=== PATIENT | male | born 1985 | race Caucasian/White ===

== ENCOUNTER 2019-07-25 17:07 | Emergency (ER) | payer OTHER ==
[2019-07-25] MEDS ORDERED: ACETAMINOPHEN 500 MG TABLET (FP) PO ONE (17:40)
[2019-07-25] MEDS ORDERED: ONDANSETRON *ODT* 4 MG TABLET SL ONE (17:40)
--- NOTE | 2019-07-25 17:40 | PDOC ---
Rapid Medical Evaluation Chief Complaint: Cold Symptoms Time Seen by Provider: 07/25/19 17:38 Medical Evaluation: Allergies Allergy/AdvReac Type Severity Reaction Status Date / Time No Known Allergies Allergy Verified 07/25/19 17:37 07/25/19 17:38 I have performed a brief in-person evaluation of this patient. The patient presents with a chief complaint of: presenting with complains of malaise, fever, chills, nausea and vomiting since this AM. report unable to keep food down Pertinent physical exam findings: fever of 101 I have ordered the following:zofran, rapid flu, Tylenol The patient will proceed to the ED for further evaluation. Discharge Disposition - Diagnosis Fever Qualifiers: Fever type: unspecified Qualified Code(s): R50.9 - Fever, unspecified - Discharge Dispostion Condition at time of disposition: Stable - Referrals - Patient Instructions - Post Discharge Activity
[2019-07-25 17:41] VITALS: BP 121/71; PULSE 16; TEMP 101.3; BMI 28.1
[2019-07-25] MEDS ORDERED: ONDANSETRON *ODT* 4 MG TABLET ONE (18:41)
[2019-07-25] MEDS ORDERED: ACETAMINOPHEN 500 MG TABLET (FP) ONE (18:41)
--- NOTE | 2019-07-25 19:32 | PDOC ---
History of Present Illness - General Chief Complaint: Cold Symptoms Stated Complaint: COLD SYMPTOMS/DIARRHEA Time Seen by Provider: 07/25/19 17:38 History Source: Patient Exam Limitations: No Limitations - History of Present Illness Initial Comments: 07/25/19 19:28 33-year-old male denies past medical history presents complaining of fever, nausea, body aches, one episode of vomiting and one episode of diarrhea today. Patient returned from 6-day trip to [place] 2 days ago. Patient did not take any medications today. Reports daughter at home diagnosed with ear and throat infection yesterday. Denies cough, headache, neck pain, chest pain, shortness of breath, abdominal pain, rash, urinary complaints or any other symptoms. ROS: GENERAL/CONSTITUTIONAL: Positive fever, weakness, no chills or dizziness HEAD, EYES, EARS, NOSE AND THROAT: No changes in vision, No ear pain or discharge, No sore throat CARDIOVASCULAR: No chest pain RESPIRATORY: No shortness of breath or cough GASTROINTESTINAL: Positive nausea, vomiting, diarrhea, no abdominal pain GENITOURINARY: No dysuria MUSCULOSKELETAL: No neck or back pain SKIN: No rash NEUROLOGIC: No headache, vertigo, loss of consciousness, or loss of sensation PE: GENERAL: well-appearing, NAD HEAD: NCAT EYES: Pupils equal, round and reactive to light, sclera anicteric, conjunctiva clear ENT: Normal bilateral ear canals, normal TM's, pharynx: no erythema, no exudate , uvula midline NECK: supple, no lymphadenopathy CHEST: nontender RESP: clear, no w/r/r CARDIO: rrr, no m/g/r ABD: +BS, soft, nontender, non distended BACK: no midline spinal ttp, no CVAT EXTREMITIES: Normal range of motion, no edema NEUROLOGICAL: Normal speech, normal gait SKIN: Warm, Dry Is this a multiple visit Asthma Patient?: No Past History - Past Medical History Allergies/Adverse Reactions: Allergies Allergy/AdvReac Type Severity Reaction Status Date / Time No Known Allergies Allergy Verified 07/25/19 17:37 - Psycho Social/Smoking Cessation Hx Smoking History: Never smoked Hx Alcohol Use: No Drug/Substance Use Hx: No *Physical Exam - Vital Signs Last Vital Signs Temp Pulse Resp BP Pulse Ox 101.3 F H 16 L 121 H 121/71 99 07/25/19 17:37 07/25/19 17:37 07/25/19 17:37 07/25/19 17:37 07/25/19 17:37 ED Treatment Course - Medications Given in the ED: ED Medications Discontinued Medications Generic Name Dose Route Start Last Admin Trade Name Kimberly PRN Reason Stop Dose Admin Acetaminophen 1,000 mg 07/25/19 17:40 07/25/19 18:43 Tylenol - PO 07/25/19 17:41 1,000 mg ONCE ONE Administration Ondansetron HCl 4 mg 07/25/19 17:40 07/25/19 18:43 Zofran Odt - SL 07/25/19 17:41 4 mg ONCE ONE Administration Medical Decision Making - Medical Decision Making 07/25/19 19:31 33-year-old male with body aches, nausea, one episode of vomiting and diarrhea, fever x1 day. Return 2 days ago from 6-day trip to [place]. Young daughter diagnosed yesterday with ear and throat infection. with similar symptoms. Symptoms likely due to viral illness Tolerating p.o. fluids P.o. acetaminophen given Supportive care instructions provided Strict return precautions given 07/25/19 19:41 Repeat temp 99.8 Note for work provided Stable for discharge Discharge - Discharge Information Problems reviewed: Yes Clinical Impression/Diagnosis: Fever Qualifiers: Fever type: unspecified Qualified Code(s): R50.9 - Fever, unspecified Condition: Stable Disposition: HOME - Admission No - Follow up/Referral Referrals: Jass Fischer [Primary Care Provider] - - Patient Discharge Instructions Additional Instructions: Rest, remain hydrated Alternate between acetaminophen 975 mg every 6 hours and ibuprofen 600 mg every 6 hours as needed for fever Follow-up with your doctor within 1 week If symptoms worsen return to ED - Post Discharge Activity Work/Back to School Note: Back to Work
== END 2019-07-25 19:44 | disposition home or self-care (01) ==
LOC: JERFT 17:07
DX: R50.9 Fever, unspecified (principal)
CPT/HCPCS: 87804; 99281-25; Q0162

== ENCOUNTER 2022-01-28 18:33 | Inpatient (IN) | payer OTHER ==
[2022-01-28 18:39] VITALS: BMI 28.7
[2022-01-28] MEDS ORDERED: KETOROLAC TROMETHAMINE 30 MG/1 ML VIAL IVPUSH ONE (20:58)
[2022-01-28] MEDS ORDERED: KETOROLAC TROMETHAMINE 30 MG/1 ML VIAL ONE (21:22)
[2022-01-28 21:54] LABS: BASO % 0.4 % (0-2.0); EOS % 1.4 % (0-4.5); HEMATOCRIT 44.3 % (35.4-49); HEMOGLOBIN 15.3 GM/dL (11.7-16.9); LYMPH % 11.8 % (8-40); MCH 30.2 pg (25.7-33.7); MCHC 34.5 g/dl (32.0-35.9); MEAN CELL VOLUME 87.7 fl (80-96); MONO % 6.7 % (3.8-10.2); NEUT % 79.7 % (42.8-82.8); PLATELET COUNT 204 10^3/uL (134-434); RBC 5.05 M/mm3 (4.00-5.60); RDW 14.6 % (11.9-15.9); WHITE BLOOD COUNT 12.7 K/mm3 (4.0-10.0)
[2022-01-28 22:34] LABS: EPI CELLS 2 /uL (0-25.1); HYALINE CASTS 1 /uL (0-3.1); PH,URINE 5.5 (5.0-8.0); URINE APPEARANCE CLEAR; URINE BACTERIA 0 /uL (0-1359); URINE BILIRUBIN NEGATIVE (NEGATIVE); URINE COLOR YELLOW; URINE GLUCOSE (UA) NEGATIVE (NEGATIVE); URINE KETONE TRACE (NEGATIVE); URINE LEUK ESTERASE NEGATIVE (NEGATIVE); URINE NITRITE NEGATIVE (NEGATIVE); URINE PROTEIN NEGATIVE (NEGATIVE); URINE RBC 2 /uL (0-23.9); URINE UROBILINOGEN 0.2 mg/dL (0.2-1.0); URINE WBC 5 /uL (0-25.8)
[2022-01-28 23:07] LABS: INR 1.07 (0.83-1.09); PROTHROMBIN TIME (PATIENT) 12.3 SEC (9.7-13.0)
[2022-01-28 23:21] LABS: CALCIUM 9.3 mg/dL (8.5-10.1)
[2022-01-28 23:22] LABS: BLOOD UREA NITROGEN 16.5 mg/dL (7-18)
[2022-01-28 23:25] LABS: CREATININE 1.5 mg/dL (0.55-1.3)
[2022-01-28 23:27] LABS: TOT PROT 7.3 g/dl (6.4-8.2)
[2022-01-29 01:09] LABS: BILIRUBIN,TOTAL 0.6 mg/dL (0.2-1)
[2022-01-29] MEDS ORDERED: TAMSULOSIN HCL 0.4 MG CAP PO ONE (04:59)
[2022-01-29] MEDS: SODIUM CHLORIDE 1,000 ML IV SCH (08:54)
[2022-01-29] MEDS: TAMSULOSIN HCL 0.4 MG CAP PO SCH (08:55)
[2022-01-29 09:12] LABS: HEMATOCRIT 43.6 % (35.4-49); HEMOGLOBIN 15.1 GM/dL (11.7-16.9); MCH 30.5 pg (25.7-33.7); MCHC 34.6 g/dl (32.0-35.9); MEAN CELL VOLUME 88.3 fl (80-96); MEAN PLT VOLUME 9.7 fl (7.5-11.1); PLATELET COUNT 198 10^3/uL (134-434); RBC 4.94 M/mm3 (4.00-5.60); RDW 13.4 % (11.9-15.9); WHITE BLOOD COUNT 6.8 K/mm3 (4.0-10.0)
[2022-01-29] MEDS: ENOXAPARIN NA (PORCINE) 40 MG/0.4 ML DISP.SYRIN SQ SCH (09:17)
[2022-01-29 09:22] LABS: CHLORIDE 103 mmol/L (98-107); SODIUM 140 mmol/L (136-145)
[2022-01-29 09:33] LABS: ANION GAP 8 MMOL/L (8-16); BLOOD UREA NITROGEN 16.4 mg/dL (7-18); CALCIUM 9.2 mg/dL (8.5-10.1); CO2 28 mmol/L (21-32)
[2022-01-29 09:34] LABS: GLUCOSE,RANDOM 89 mg/dL (74-106); MAGNESIUM 2.3 mg/dL (1.8-2.4); TOT PROT 7.2 g/dl (6.4-8.2)
[2022-01-29 09:35] LABS: ALK PHOS 144 U/L (45-117)
[2022-01-29 09:36] LABS: PHOSPHOROUS 3.6 mg/dL (2.5-4.9); SGOT/AST 16 U/L (15-37); SGPT/ALT 28 U/L (13-61)
[2022-01-29 09:37] LABS: CREATININE 1.2 mg/dL (0.55-1.3)
[2022-01-29 13:02] LABS: INR 1.07 (0.83-1.09); PROTHROMBIN TIME (PATIENT) 12.3 SEC (9.7-13.0)
[2022-01-29 13:05] LABS: ACTIVATED PTT 29.4 SECONDS (25.2-36.5)
[2022-01-29] MEDS: morphine SULFATE 4 MG/ML VIAL IVPUSH PRN ×2 (16:44→21:21)
[2022-01-29] MEDS ORDERED: ONDANSETRON 4 MG/2 ML VIAL IVPUSH PRN (19:19)
[2022-01-30] MEDS: morphine SULFATE 4 MG/ML VIAL IVPUSH PRN ×2 (01:25→10:48)
[2022-01-30] MEDS: SODIUM CHLORIDE 1,000 ML IV SCH (06:17)
[2022-01-30] MEDS: ENOXAPARIN NA (PORCINE) 40 MG/0.4 ML DISP.SYRIN SQ SCH (10:30)
[2022-01-30] MEDS: TAMSULOSIN HCL 0.4 MG CAP PO SCH (10:36)
[2022-01-30 12:03] LABS: BASO % 0.4 % (0-2.0); EOS % 0.9 % (0-4.5); HEMATOCRIT 44.5 % (35.4-49); HEMOGLOBIN 15.5 GM/dL (11.7-16.9); LYMPH % 14.2 % (8-40); MCH 30.4 pg (25.7-33.7); MCHC 34.8 g/dl (32.0-35.9); MEAN CELL VOLUME 87.5 fl (80-96); MEAN PLT VOLUME 9.5 fl (7.5-11.1); MONO % 10.3 % (3.8-10.2); NEUT % 74.2 % (42.8-82.8); PLATELET COUNT 185 10^3/uL (134-434); RBC 5.09 M/mm3 (4.00-5.60); RDW 13.5 % (11.9-15.9); WHITE BLOOD COUNT 8.4 K/mm3 (4.0-10.0)
[2022-01-30] MEDS ORDERED: IBUPROFEN 800 MG/8 ML IJ IVPB PRN (12:18)
[2022-01-30] MEDS ORDERED: PROPOFOL 20 ML ONE (12:21)
[2022-01-30] MEDS ORDERED: MIDAZOLAM HCL 2 MG/2 ML SINGLE DOSE VIAL ONE (12:21)
[2022-01-30] MEDS ORDERED: LIDOCAINE HCL/PF 2% SDV 5ML VIAL ONE (12:21)
[2022-01-30] MEDS ORDERED: ceFAZolin SODIUM 1 GM VIAL ONE (12:21)
[2022-01-30] MEDS ORDERED: LACTATED RINGERS SOLUTION 1,000 ML IV SCH (12:30)
[2022-01-30 12:32] LABS: CALCIUM 9.5 mg/dL (8.5-10.1)
[2022-01-30 12:33] LABS: BLOOD UREA NITROGEN 16.7 mg/dL (7-18)
[2022-01-30 12:35] LABS: CREATININE 1.6 mg/dL (0.55-1.3)
[2022-01-30] MEDS ORDERED: ceFAZolin SODIUM 1 GM VIAL IVPB ONE (12:42)
[2022-01-30] MEDS ORDERED: DEXAMETHASONE SOD PHOSPHATE 4 MG/1 ML VIAL ONE (12:46)
[2022-01-30] MEDS ORDERED: LIDOCAINE HCL 2% JELLY 10 ML CARTRIDGE ONE (13:00)
[2022-01-30] MEDS ORDERED: SODIUM CHLORIDE 1,000 ML IV SCH (13:45)
[2022-01-30] MEDS ORDERED: ONDANSETRON 4 MG/2 ML VIAL IVPUSH PRN (13:45)
[2022-01-30] MEDS ORDERED: ACETAMINOPHEN 1000 MG/100 ML BAG IVPB PRN (16:27)
[2022-01-30] MEDS: ACETAMINOPHEN 325 MG TABLET (FP) PO PRN ×2 (16:55→21:15)
[2022-01-31] MEDS ORDERED: TAMSULOSIN HCL 0.4 MG CAP PO SCH (08:30)
[2022-01-31 09:09] VITALS: BP 139/77; PULSE 83; RESP 20; TEMP 98.4
[2022-01-31] MEDS ORDERED: ENOXAPARIN NA (PORCINE) 40 MG/0.4 ML DISP.SYRIN SQ SCH (10:00)
[2022-01-31] MEDS ORDERED: CEPHALEXIN MONOHYDRATE 500 MG CAPSULE (UD) PO ONE (10:44)
== END 2022-01-31 12:53 | disposition home or self-care (01) | DRG 446 ==
LOC: JER 18:33 → JERBED 23:05 → J5S 01-29 06:11
PROVIDERS: ADMIT Internal Medicine; ATTEND Nurse Practitioner Family
PROC: 0TC68ZZ Extirpation of Matter from Right Ureter, Via Natural or Artificial Opening Endoscopic (ICD-10-PCS; 2022-01-30)
PROC: BT1DZZZ Fluoroscopy of Right Kidney, Ureter and Bladder (ICD-10-PCS; 2022-01-30)
PROC: 0T768DZ Dilation of Right Ureter with Intraluminal Device, Via Natural or Artificial Opening Endoscopic (ICD-10-PCS; principal; 2022-01-30 13:30)
DX: N13.2 Hydronephrosis with renal and ureteral calculous obstruction (principal); N17.9 Acute kidney failure, unspecified
CPT/HCPCS: 36415; 74177-TC; 76000-TC-FY; 76775-TC; 80048; 80053; 81003; 82550; 82553; 83735; 84100; 85025; 85027; 85610; 85730; 87086; 93005; 93010; 94760; 99285-25; C9803-CS; Q9967; U0003; U0005

== ENCOUNTER 2022-03-03 04:02 | Day surgery (SDC) | payer OTHER ==
[2022-02-12 10:02] VITALS: BMI 27.9
[2022-03-03] MEDS ORDERED: ceFAZolin SODIUM 1 GM VIAL IVPB ONE (13:49)
[2022-03-03] MEDS ORDERED: PROPOFOL 20 ML ONE (13:53)
[2022-03-03] MEDS ORDERED: ceFAZolin SODIUM 1 GM VIAL ONE (13:54)
[2022-03-03] MEDS ORDERED: KETOROLAC TROMETHAMINE 30 MG/1 ML VIAL ONE (13:54)
[2022-03-03 14:50] VITALS: RESP 18
[2022-03-03 17:21] VITALS: BP 121/84; PULSE 68; TEMP 98.8
== END 2022-03-03 15:35 | disposition home or self-care (01) ==
LOC: JASU-SURG 04:02
PROVIDERS: ATTEND Urology
PROC: 0TF3XZZ Fragmentation in Right Kidney Pelvis, External Approach (ICD-10-PCS; principal; 2022-03-03 13:00)
DX: N20.0 Calculus of kidney (principal)

== ENCOUNTER 2022-05-11 04:13 | Day surgery (SDC) | payer OTHER ==
[2022-05-07 11:45] VITALS: BMI 27.6
[2022-05-11] MEDS ORDERED: PROPOFOL 20 ML ONE (14:42)
[2022-05-11] MEDS ORDERED: MIDAZOLAM HCL 2 MG/2 ML SINGLE DOSE VIAL ONE (14:42)
[2022-05-11] MEDS ORDERED: ceFAZolin SODIUM 1 GM VIAL ONE (14:58)
[2022-05-11] MEDS ORDERED: ceFAZolin SODIUM 1 GM VIAL IVPB ONE (14:59)
[2022-05-11] MEDS ORDERED: DEXAMETHASONE SOD PHOSPHATE 4 MG/1 ML VIAL ONE (15:01)
[2022-05-11] MEDS ORDERED: ONDANSETRON 4 MG/2 ML VIAL ONE (15:01)
[2022-05-11] MEDS ORDERED: KETOROLAC TROMETHAMINE 30 MG/1 ML VIAL ONE (15:17)
[2022-05-11] MEDS ORDERED: LIDOCAINE HCL 2% JELLY 10 ML CARTRIDGE TP ONE (15:20)
[2022-05-11] MEDS ORDERED: ONDANSETRON 4 MG/2 ML VIAL IVPUSH PRN (15:35)
[2022-05-11] MEDS ORDERED: oxyCODONE HCL 5 MG TABLET PO PRN (15:35)
[2022-05-11] MEDS ORDERED: LACTATED RINGERS SOLUTION 1,000 ML IV SCH (15:45)
[2022-05-11 16:11] VITALS: RESP 16
[2022-05-11 16:30] VITALS: TEMP 98
[2022-05-11 17:43] VITALS: BP 122/84; PULSE 74
== END 2022-05-11 17:50 | disposition home or self-care (01) ==
LOC: JASU-SURG 04:13
PROVIDERS: ATTEND Urology
PROC: 0TC38ZZ Extirpation of Matter from Right Kidney Pelvis, Via Natural or Artificial Opening Endoscopic (ICD-10-PCS; principal; 2022-05-11 15:30)
PROC: 0T768DZ Dilation of Right Ureter with Intraluminal Device, Via Natural or Artificial Opening Endoscopic (ICD-10-PCS; 2022-05-11 15:30)
DX: N20.0 Calculus of kidney (principal)
CPT/HCPCS: 76000-TC-FY; 94760; C1769; C2617

== ENCOUNTER 2022-11-03 21:41 | Emergency (ER) | payer OTHER ==
[2022-11-03 21:44] VITALS: BP 135/83; PULSE 86; RESP 17; TEMP 98; BMI 28.4
== END 2022-11-03 23:49 | disposition home or self-care (01) ==
LOC: JERFT 21:41 → JER 21:41
DX: M79.675 Pain in left toe(s) (principal); W22.8XXA Striking against or struck by other objects, initial encounter; Y92.008 Other place in unspecified non-institutional (private) residence as the place of occurrence of the external cause
CPT/HCPCS: 73610-TC-LT-FY; 73630-TC-LT; 99283-25